=== PATIENT | male | born 1960 | race Caucasian/White ===

== ENCOUNTER → 2023-07-20 13:40 | Outpatient (REF) | payer OTHER, SELFPAY | LOC: RCS 13:40 | PROVIDERS: ATTENDING PHYSICIAN Nurse Practitioner Family; FAMILY PHYSICIAN Family Medicine | DX: R07.9 Chest pain, unspecified (principal) | CPT/HCPCS: 93017; 93350 ==

== ENCOUNTER → 2023-12-26 10:12 | Outpatient (REF) | payer OTHER, SELFPAY | LOC: HWRAD 10:12 | PROVIDERS: ATTENDING PHYSICIAN Family Medicine | DX: Z87.891 Personal history of nicotine dependence (principal) | CPT/HCPCS: 71271 ==

== ENCOUNTER 2024-11-05 16:35 | Emergency (ER) | payer OTHER, SELFPAY ==
[2024-11-05 16:42] VITALS: BP 172/106
[2024-11-05 17:00] LABS: Hematocrit 37.5 % (39.0-52.0); Hemoglobin 13.4 g/dL (13.0-18.0); Mean Corp Hgb Conc. 35.7 g/dL (33.0-37.0); Mean Corpuscular Volume 94.9 fL (80.0-94.0); Nucleated Red Blood Cells % 0 % (-); Platelet Count 177 10^3/uL (130-400); Red Cell Dist. Width 11.9 % (11.5-14.5)
[2024-11-05 17:34] LABS: Troponin I < 0.012 ng/ml
[2024-11-05 17:51] LABS: ALT (SGPT) 18 U/L (0-50); AST (SGOT) 22 U/L (17-59); Albumin 4.6 g/dl (3.5-5.0); Alkaline Phosphatase 41 U/L (38-126); Blood Urea Nitrogen 19 mg/dl (9-20); Calcium 9.7 mg/dl (8.4-10.2); Carbon Dioxide 26 mmol/L (22-30); Chloride 107 mmol/L (98-107); Glucose 106 mg/dl (70-99); Potassium 4.1 mmol/L (3.5-5.1); Sodium 138 mmol/L (135-145); Total Protein 7.2 g/dl (6.3-8.2); eGFR > 60.00
[2024-11-05 19:25] VITALS: BP 169/95
[2024-11-05 20:00] VITALS: BP 153/96
--- NOTE | 2024-11-05 20:10 | ED.GENMED ---
History of Present Illness
General
Chief Complaint: Chest Pain
Source: patient
Exam Limitations: none
Time Seen by Provider: 11/05/24 20:09
History of Present Illness
History of Present Illness:
Patient will be yesterday morning, about 36 hours ago, with a left upper anterior chest pain that radiated slightly to the left upper arm. It has been continuous since then but waxes and wanes. No pleuritic component. No shearing or upper back
pain. No jaw pain no shortness of breath no nausea or diaphoresis. Again this has been continuous but waxes and wanes throughout the day. Nonexertional. He had a similar episode a year ago with a negative stress test at that time. He was
lifting furniture the night before.
Past History
Past History
ED Past Medical History: HTN
ED Past Surgical History: Orthopedic and Other (Deviated septum)
Review of Systems
Review of Systems
All Other Systems: Not applicable
Respiratory: Reports no symptoms
ABD/GI: Reports no symptoms
Phy Exam
Physical Exam
Physical Exam:
GENERAL: Alert and oriented in no apparent distress
EYE: Orbits normal.
NECK: Supple, no significant adenopathy.
ENT: Pharynx without erythema
CARDIAC: Regular rate and rhythm without any obvious murmurs. Some reproducible tenderness to the left upper chest wall. This was compared to the right chest wall which was not tender
LUNGS: Clear breath sounds,normal
ABDOMEN: Soft, without focal tenderness or distention
NEUROLOGICAL: Alert and oriented , grossly non-focal
SKIN: Warm and dry, no rash or lesion, no discoloration, skin intact.
MUSCULOSKELETAL: No edema,no deformity.Good color
PSYCH: Normal and appropriate interaction.
Scores
Heart Score for Chest Pain Patients
STEMI patient?: No
History: Slightly or Non-Suspicious
ECG: Normal
Age: >45 - <65 years
Risk Factors: 1 or 2 Risk Factors
Troponin: </= Normal Limit
Heart Score for Chest Pain Patients: 2
Heart Score Risk: 2.5% MACE over next 6 weeks
Course
Orders/Labs/Results
Orders:
Orders
11/05/24 16:36
Electrocardiogram (*1) Urgent
Reason for Study: Chest Pain
EKG- Treatment ONCE
11/05/24 16:46
CR Chest - 2 Views Urgent
Comment:
Reason For Exam: chest pain
11/05/24 16:52
Complete Blood Count/With Diff Urgent
Comprehensive Metabolic Panel Urgent
Troponin I Urgent
11/05/24 20:22
Electrocardiogram (*1) Stat
Reason for Study: Other
Other Reason for Exam: chest pain
EKG- Treatment ONCE
11/05/24 20:46
D-Dimer Urgent
Troponin I Urgent
11/06/24 00:01
Electrocardiogram (*1) Stat
Reason for Study: Other
Other Reason for Exam: chest pain
EKG- Treatment ONCE
11/06/24 00:12
Troponin I Urgent
Abnormal Lab Results
11/05/24
16:52
RBC 3.95 L 10^6/uL
(4.70-6.10)
Hct 37.5 L %
(39.0-52.0)
MCV 94.9 H fL
(80.0-94.0)
MCH 33.9 H pg
(27.0-31.0)
Glucose 106 H mg/dl
(70-99)
11/05/24 16:52
11/05/24 16:52
Vital Signs
Initial and Last Documented VS:
Initial Vital Signs
Temp Pulse Resp BP Pulse Ox
98.7 F 75 16 172/106 97
11/05/24 16:42 11/05/24 16:42 11/05/24 16:42 11/05/24 16:42 11/05/24 16:42
Last Documented Vital Signs
Temp Pulse Resp BP Pulse Ox
97.7 F 64 16 155/96 97
11/05/24 23:17 11/06/24 00:15 11/06/24 00:00 11/05/24 23:00 11/06/24 00:15
MDM/Problems Addressed
Differential Diagnosis Includes:
Patient with ongoing localized left upper wall chest pain x 36 hours. States the seatbelt bothers him's. Nonpleuritic. Highly doubt dissection. Doubt PE but will check D-dimer. Cardiac miller this has been continuous for 36 hours but does wax and
wane some. Not exertional. Does have hypertension and a family history. Totally for completeness we will do a repeat troponin and EKG although with his prolonged symptoms I highly expect this would have been positive by now. If all stable may be
discharged to follow-up.
*Pulse Oximetry
SaO2: 97
Oxygen Mode of Delivery: Room air
Patient hypoxic: no
*EKG
Interpreted by ED Provider?: Yes
Interpretation: normal
Comparison EKG: no comparison EKG present
Heart Rate: 76
Rate: normal
Rhythm: sinus
[place]: normal axis
Interval: normal interval
QRS Pattern: normal QRS
Ischemia: no ischemia
*Critical Care Note
Total Time (30-74mins, 75-104mins- exclusive of procedures): Not Applicable
Update Note
Update Note:
EKG #3 normal sinus rhythm at 63. No acute changes. Repeat troponin stable. Patient is nontoxic and in no distress. Discharged to follow-up with cardiology.
ED Attending Note
-
Portions of this chart may have been created with voice recognition software.� Occasional wrong word or��sound alike� substitutions may have occurred due to the inherent limitations of voice recognition software.
Discharge Plan
Departure
Patient Disposition: Home (Routine Discharge)
Date of Disposition: 11/06/24
Time of Disposition: 01:16
Patient with high blood pressure during this ER visit?: Yes
Discharge Problem:
Chest pain
Instructions: Chest Pain DCA Follow Up
Referrals:
[facility], [Other]
Miguel Petersen MD [Family Provider, Family Practice] - Follow up in 2-3 days
Interventions
Interventions:
*Risk Screen - Suicide Last Done: 11/05/24 19:45
*General Assessment Last Done: 11/05/24 19:45
*Neglect/Abuse Screening Last Done: 11/05/24 19:45
*ED- Fall Risk Assessment Last Done: 11/05/24 19:45
*ED COVID-19 Vaccine History Last Done: 11/05/24 19:45
ED- Cardiac Assessment Last Done: 11/05/24 23:15
Discharge Date and Time
Print Language: SLOVAK
[2024-11-05 21:00] VITALS: BP 152/99
[2024-11-05 21:15] LABS: D-Dimer < 0.27 ug/mlFEU (0.00-0.50)
[2024-11-05 21:20] LABS: Troponin I 0.017 ng/ml
[2024-11-05 22:00] VITALS: BP 153/98
[2024-11-05 23:00] VITALS: BP 155/96
[2024-11-05 23:15] VITALS: BMI 24.8
[2024-11-06 00:58] LABS: Troponin I 0.017 ng/ml
[2024-11-06 01:00] VITALS: BP 153/98
== END 2024-11-06 01:40 | disposition home or self-care (01) ==
LOC: EMR 16:35
PROVIDERS: Emergency Medicine; EMERGENCY PHYSICIAN Emergency Medicine; FAMILY PHYSICIAN Family Medicine
DX: R07.89 Other chest pain (principal); I10 Essential (primary) hypertension
CPT/HCPCS: 99285; 71046; 80053; 84484; 85025; 85379; 93005

== ENCOUNTER → 2024-12-30 09:55 | Outpatient (REF) | payer OTHER, SELFPAY | LOC: RAD 09:55 | PROVIDERS: ATTENDING PHYSICIAN Internal Medicine Cardiovascular Disease; FAMILY PHYSICIAN Family Medicine | DX: R07.9 Chest pain, unspecified (principal) | CPT/HCPCS: 75574; Q9967 ==

== ENCOUNTER 2025-01-06 06:32 | Day surgery (SDC) | payer OTHER, SELFPAY ==
[2025-01-03 08:14] VITALS: BMI 25.0
[2025-01-06] VITALS (10 sets, daily range): BP systolic 111–147; BP diastolic 71–87; BMI 25.1
[2025-01-06] MEDS: NSS 231 ML IV (07:06)
[2025-01-06] MEDS: LOW STRENGTH ASPIRIN 81 MG PO (07:08)
[2025-01-06 09:01] LABS: ACT-LR - POC 197 Seconds (116-155)
[2025-01-06 09:09] LABS: ACT-LR - POC 276 Seconds (116-155)
[2025-01-06 09:19] LABS: ACT-LR - POC 224 Seconds (116-155)
--- NOTE | 2025-01-06 10:01 | ITS.CL.CATH ---
Deputy Director Of Finance - Catheterization
Cardiac Catheterization
Procedure Report:
LEFT HEART CATHETERIZATION
Date of Procedure: January 06, 2025
Referring: Dr. Tani Walker
PROCEDURES:
1. Left heart catheterization with coronary and single-plane left ventriculography
2. Hemodynamic assessment of mid RCA and large OM1 using a [place] Omni wire. The iFR in both vessels measured above the ischemic threshold as described below
INDICATION: This is a 64-year-old gentleman with a past medical history notable for hypertension and a family history notable for premature coronary artery disease. He has a long history of intermittent substernal chest pressure that has been
difficult to assess. His last stress test a year ago was notable for a good exercise tolerance and no significant ischemia. More recently he was referred for CT coronary angiography and found to have an elevated CT coronary calcium score for which
she is now referred for coronary angiography in the setting of ongoing symptoms.
ACCESS: Right radial artery, 6 [place] sheath
HEMODYNAMICS : (mmHg): Note: Patient experienced vasovagal episode after sheath insertion and became hypotensive and mildly bradycardic. He received 500 mL of normal saline with improvement in blood pressure
AO (s/d) : 119/79, 98
LV (s/d) : 114/10
LVEDP : 20
CORONARY FINDINGS
DOMINANCE: Right
LEFT MAIN: Normal
LEFT ANTERIOR DESCENDING: The LAD arises normally from the left main and runs in the anterior interventricular groove. The LAD has minor irregularities over its course but no focal obstructive high-grade stenosis.
CIRCUMFLEX: The circumflex is a moderate caliber vessel. The OM1 arises proximally from the circumflex and has a 50% proximal stenosis. OM 2 is a medium caliber vessel. The circumflex continues in the AV groove and terminates into the
posterolateral branch. The iFR measured above the ischemic threshold in the large obtuse marginal branch and 0.95, 0.95, and 0.94
RIGHT CORONARY ARTERY: The right coronary artery is a medium caliber dominant artery that has a 65% stenosis in its midportion. The PDA arises from the mid right coronary artery beyond the 65% stenosis and has only minor irregularities. The
posterolateral branch is large with mild irregularities. The iFR in the distal RCA with the tip of the wire in the mid posterolateral branch beyond the stenotic segment measured above the ischemic threshold at 0.94, 0.94, 0.95 and 0.95
VENTRICULOGRAPHY: Left ventriculography is performed in the [place] projection. The digital single-plane left ventricular ejection fraction is estimated at 55%. No regional wall motion abnormalities are noted.
SEDATION: 54 minutes of procedural sedation was utilized. An independent medical biller was present to assist with and help manage the patient's level of consciousness and physiologic status.
RADIATION SUMMARY: Fluoro Time (min): 9.3, Dose (mGy): 407, DAP (Gy.cm2) : 28.9
Closure Device: TR band
CONCLUSIONS
1. Moderate coronary artery disease in the mid right coronary artery and in OM1. The iFR in both vessels measured above the ischemic threshold as listed above.
2. Preserved LV systolic function
RECOMMENDATIONS
1. Continue aspirin 81 mg daily
2. High intensity statin therapy would be appropriate given evidence of coronary artery atherosclerotic disease
3. Needs guideline directed medical therapy for blood pressure control
Copy to: Dr. Tani Walker
[2025-01-06] MEDS: NSS 300 IV (10:09)
== END 2025-01-06 13:15 | disposition home or self-care (01) ==
LOC: CATH 06:32
PROVIDERS: ATTENDING PHYSICIAN Internal Medicine Interventional Cardiology; FAMILY PHYSICIAN Family Medicine; OTHER PHYSICIAN Internal Medicine Cardiovascular Disease
DX: I25.10 Atherosclerotic heart disease of native coronary artery without angina pectoris (principal); I10 Essential (primary) hypertension; E78.5 Hyperlipidemia, unspecified; R55 Syncope and collapse; I95.9 Hypotension, unspecified; R00.1 Bradycardia, unspecified; Z79.82 Long term (current) use of aspirin; Z79.899 Other long term (current) drug therapy; Z82.49 Family history of ischemic heart disease and other diseases of the circulatory system; Z79.891 Long term (current) use of opiate analgesic
CPT/HCPCS: 93799; 85347; 93005; 93458; 99152; 99153; C1769; C1887; C1894; Q9967